=== PATIENT | male | born 1995 | race Two or more races ===

== ENCOUNTER 2025-08-15 18:58 | Emergency (ER) | payer OTHER ==
[~2025-08-15] VITALS: Ht 182.9 cm; Wt 90.7 kg
[2025-08-15] MEDS ORDERED: LORazepam 2 MG/ML VIAL IV PUSH ONE (19:00)
[2025-08-15] MEDS ORDERED: 0.9 % SODIUM CHLORIDE 1,000 ML IV ONE (19:15)
[2025-08-15] MEDS ORDERED: DIPHENHYDRAMINE HCL 50 MG/ML VIAL 1ML IV ONE (19:15)
[2025-08-15] MEDS ORDERED: HALOPERIDOL LACTATE 5 MG/ML AMPUL IV ONE (19:15)
[2025-08-15] MEDS ORDERED: DIPHENHYDRAMINE HCL 50 MG/ML VIAL 1ML ONE (19:33)
[2025-08-15] MEDS ORDERED: HALOPERIDOL LACTATE 5 MG/ML AMPUL ONE (19:34)
[2025-08-15] MEDS ORDERED: LORazepam 2 MG/ML VIAL ONE (19:35)
[2025-08-15 20:34] LABS: BASO % 0.4 % (0.1-1.2); EOS # 0.53 (0.04-0.54); EOS % 5.6 % (0.7-7.0); LYMPH # 4.07 (1.18-3.74); LYMPH % 43.2 % (19.3-53.1); MEAN PLATELET VOLUME 9.20 fl (9.4-12.4); MONO # 0.76 (0.24-0.82); MONO % 8.1 % (4.7-12.5); NEUT # 3.98 (1.56-6.13); NEUT % 42.2 % (34.0-71.1); RED CELL DISTRIBUTION WIDTH 11.7 % (11.6-14.4)
[2025-08-15 20:54] LABS: URINE APPEARANCE Clear; URINE BILIRRUBIN Negative (NEGATIVE); URINE BLOOD Large; URINE COLOR Yellow; URINE GLUCOSE Negative (NEGATIVE); URINE KETONE Negative (NEGATIVE); URINE LEUKOCYTE Trace; URINE NITRATE Negative; URINE UROBILINOGEN 1.0 E.U./dl
[2025-08-15 20:58] LABS: URINE BACTERIA 4.7 uL (0.0-1933); URINE RBC 8.6 uL (0.0-20.8)
[2025-08-15 20:58] LABS: ALT/SGPT 29.0 U/L (12-78); AST/SGOT 25.0 U/L (15-37); BILIRUBIN TOTAL 0.87 mg/dL (0.3-1.2); BUN CREA RATIO 13.0 (7.0-25.0); CREATININE SERUM 1.26 mg/dL (0.70-1.30); GFR 67.66; GLOBULINA 3.2 G/DL (2.4-3.5); GLUCOSE FASTING 88.0 mg/dL (65-100); OSMOLALITY SERUM 282.0 MOSM/KG (275-295)
[2025-08-15 21:04] LABS: METHADONE NEGATIVE (NEGATIVE); OPIATES NEGATIVE (NEGATIVE); THC ( Cannabinoids) NEGATIVE (NEGATIVE)
[2025-08-15 21:05] LABS: URINE CAST 0.14 uL (0.0-1.40); URINE EPITHELIAL CELLS 0.7 uL (0.0-38.8); URINE PROTEIN 100 (NEGATIVE); URINE WBC 0.6 uL (0.0-23.2)
[2025-08-15 21:41] LABS: COCAINE POSITIVE (NEGATIVE)
== END 2025-08-15 22:30 | disposition home or self-care (01) ==
LOC: ER 18:58
PROVIDERS: General Practice
DX: F19.90 Other psychoactive substance use, unspecified, uncomplicated (principal); F14.10 Cocaine abuse, uncomplicated